=== PATIENT | female | born 1985 | race American Indian/Alaskan Native ===

== ENCOUNTER 2016-07-18 19:25 | Emergency (ER) | payer OTHER ==
[2016-07-18 19:39] VITALS: BMI 23.6
[2016-07-18 19:43] VITALS: BP 148/85; PULSE 79; TEMP 98.8
[2016-07-18] MEDS ORDERED: Promethazine DM 6.25 mg-15 mg/5 ml Syrup PO STA (20:16)
--- NOTE | 2016-07-18 20:17 | ED PDOC ---
Arrival/HPI - General Chief Complaint: ENT Problem Time Seen by Provider: 07/18/16 20:16 Historian: Patient - History of Present Illness Narrative History of Present Illness (Text): 07/18/16 20:21 This 31 female presents to this ED c/o sore throat, cough, congestion x 2 days. Patient admits a mild productive cough. Denies sore throat, sob, cp, rash, sick contact, fever, nasal discharge, DE SANTIAGO, dizziness, hemoptysis, or abnormal gait. PERC negative Context: Home Past Medical History - Provider Review Nursing Documentation Reviewed: Yes - Gastrointestinal Hx Crohn's Disease: Yes - Psychiatric Hx Substance Use: No - Surgical History Other/Comment: Partial Colectomy Family/Social History - Physician Review Nursing Documentation Reviewed: Yes Family/Social History: No Known Family HX Smoking Status: Never Smoked Hx Alcohol Use: No Hx Substance Use: No Allergies/Home Meds Allergies/Adverse Reactions: Allergies iohexol Allergy (Intermediate, Verified 04/04/16 13:26) SWELLING ciprofloxacin Allergy (Verified 04/04/16 13:26) RASH ibuprofen Adverse Reaction (Verified 04/04/16 13:26) Home Medications: Home Meds Medication Instructions Recorded Confirmed Omeprazole 1 cap PO DAILY 03/03/16 04/04/16 Iron Ps Cmplx/Vit B12/FA [Iferex 1 cap PO DAILY 04/04/16 04/04/16 150 Forte 25 Mcg-1 mg-150 mg] Mesalamine [Apriso] 0.375 gm PO DAILY 04/04/16 04/04/16 Mesalamine ER Cap [Pentasa] 500 mg PO DAILY 07/18/16 07/18/16 Omeprazole 40 mg PO DAILY 07/18/16 07/18/16 Review of Systems - Review of Systems Constitutional: Normal. absent: Fatigue, Weight Change Eyes: Normal ENT: Sore Throat, Rhinorrhea Respiratory: Cough. absent: SOB, Sputum, Wheezing Cardiovascular: Normal Gastrointestinal: Normal Genitourinary Female: Normal Musculoskeletal: Normal Skin: Normal Neurological: Normal Endocrine: Normal Hemo/Lymphatic: Normal Psychiatric: Normal Physical Exam Vital Signs Temp Pulse Resp BP Pulse Ox 07/18/16 20:57 18 97 07/18/16 19:42 98.8 F 79 17 148/85 100 Temperature: Afebrile Blood Pressure: Normal Pulse: Regular Respiratory Rate: Normal Appearance: Positive for: Well-Appearing, Non-Toxic, Comfortable Pain Distress: None Mental Status: Positive for: Alert and Oriented X 3 - Systems Exam Head: Present: Atraumatic, Normocephalic Pupils: Present: PERRL Extroacular Muscles: Present: EOMI Conjunctiva: Present: Normal Ears: Present: Normal, NORMAL TM, Normal Canal. No: Erythema Mouth: Present: Moist Mucous Membranes. No: Drooling Pharnyx: Present: Normal. No: ERYTHEMA, EXUDATE, TONSILS ENLARGED Nose (External): Present: Atraumatic Nose (Internal): Present: Rhinorrhea Neck: Present: Normal Range of Motion. No: Meningeal Signs Respiratory/Chest: Present: Clear to Auscultation, Good Air Exchange. No: Respiratory Distress, Accessory Muscle Use, Decreased Breath Sounds, Rales, Retracting, Rhonchi, Tachypneic Cardiovascular: Present: Regular Rate and Rhythm, Normal S1, S2. No: Murmurs Abdomen: Present: Normal Bowel Sounds. No: Tenderness, Distention, Peritoneal Signs Back: Present: Normal Inspection Upper Extremity: Present: Normal Inspection. No: Cyanosis, Edema Lower Extremity: Present: Normal Inspection. No: Edema Neurological: Present: GCS=15, CN II-XII Intact, Speech Normal Skin: Present: Warm, Dry, Normal Color. No: Rashes Psychiatric: Present: Alert, Oriented x 3, Normal Insight, Normal Concentration Medical Decision Making ED Course and Treatment: Re-evaluation. Patient feels better. Discussed results and plan with patient who expresses understanding. All questions answered and there is agreement with the plan to discharge home with instructions. Patient stable for discharge. Return if symptoms persist or worsen. Re-evaluation Time: 20:45 Reassessment Condition: Re-examined, Improved - Medication Orders Current Medication Orders: Discontinued Medications Promethazine HCl/Dextromethorphan (Phenergan Dm Syrup) 5 ml PO STAT STA Stop: 07/18/16 20:17 Last Admin: 07/18/16 20:32 Dose: 5 ml Disposition/Present on Arrival - Present on Arrival Any Indicators Present on Arrival: No History of DVT/PE: No History of Uncontrolled Diabetes: No Urinary Catheter: No History of Decub. Ulcer: No History Surgical Site Infection Following: None - Disposition Have Diagnosis and Disposition been Completed?: Yes Diagnosis: Upper respiratory infection Disposition: HOME/ ROUTINE Disposition Time: 20:45 Patient Plan: Discharge Condition: IMPROVED Discharge Instructions (ExitCare): Upper Respiratory Infection (ED) Additional Instructions: Call private doctor for follow up visit in 1-2 days. Take medication as instructed. Return to emergency if symptoms worsen Prescriptions: Azithromycin [Z-Isidro] 250 mg PO DAILY #6 tab Promethazine/Codeine [Codeine/Promethazine 10 MG/5 Ml-6.25 MG/5 Ml] 5 ml PO Q4H PRN #120 ml PRN Reason: Cough Referrals: Rony Torres MD [Family Provider] - Follow up with primary Forms: WORK NOTE
[2016-07-18 20:58] VITALS: RESP 18; O2SAT 97
== END 2016-07-18 20:57 | disposition home or self-care (01) ==
LOC: ED 19:25 → MERGE 19:25 → ED 20:57
DX: J06.9 Acute upper respiratory infection, unspecified (principal)

== ENCOUNTER 2016-08-10 16:42 | Emergency (ER) | payer OTHER ==
[2016-08-10 16:42] VITALS: BMI 23.6
--- NOTE | 2016-08-10 17:41 | ED PDOC ---
Arrival/HPI - General Chief Complaint: Eye Problem Time Seen by Provider: 08/10/16 17:15 Historian: Patient - History of Present Illness Narrative History of Present Illness (Text): 08/10/16 17:20 31 y/o female, pmh including gastric ulcer/colitis, allergic to fluoroquinolones and dye, c/o lt. eye itching and redness x 2 days. Pt. stated she has left eye itching with redness/crustiness discharge for the past 2 days. Pt. has no pain, no dizziness, no change in vision, no palpitation, no night sweat, no numbness or tingling, no palpitation, no other medical or psychological complaints. Past Medical History - Provider Review Nursing Documentation Reviewed: Yes - Infectious Disease Hx of Infectious Diseases: None - Cardiac Hx Cardiac Disorders: No - Pulmonary Hx Asthma: Yes (EXERCISE INDUCED) - Neurological Hx Neurological Disorder: No - HEENT Hx HEENT Disorder: No - Renal Hx Renal Disorder: No - Endocrine/Metabolic Hx Endocrine Disorders: No - Hematological/Oncological Hx Blood Disorders: No - Integumentary Hx Dermatological Disorder: No - Musculoskeletal/Rheumatological Hx Musculoskeletal Disorders: No - Gastrointestinal Hx Crohn's Disease: Yes (colectomy 2006) - Genitourinary/Gynecological Hx Genitourinary Disorders: No - Psychiatric Hx Psychophysiologic Disorder: No Hx Substance Use: No - Surgical History Other/Comment: Colectomy 2006 - Anesthesia Hx Anesthesia: Yes - Suicidal Assessment Feels Threatened In Home Enviroment: No Family/Social History - Physician Review Nursing Documentation Reviewed: Yes Family/Social History: No Known Family HX Smoking Status: Never Smoked Hx Alcohol Use: Yes Hx Substance Use: No Allergies/Home Meds Allergies/Adverse Reactions: Allergies iohexol Allergy (Intermediate, Verified 08/10/16 17:03) SWELLING ciprofloxacin Allergy (Verified 08/10/16 17:03) RASH Home Medications: Home Meds Medication Instructions Recorded Confirmed Mesalamine ER Cap [Pentasa] 500 mg PO DAILY 07/18/16 08/10/16 Norgestimate-Ethinyl Estradiol 1 tab PO DAILY 08/10/16 08/10/16 [Sprintec 28 Day Tablet] Review of Systems - Review of Systems Constitutional: absent: Fatigue, Fevers Eyes: Other (watery and itching left eye). absent: Vision Changes ENT: absent: Hearing Changes Respiratory: absent: SOB, Cough Cardiovascular: absent: Chest Pain Gastrointestinal: absent: Abdominal Pain, Nausea, Vomiting Musculoskeletal: absent: Arthralgias Physical Exam Vital Signs Reviewed: Yes Vital Signs Temp Pulse Resp BP Pulse Ox 08/10/16 17:58 98.4 F 79 18 99 08/10/16 17:45 99.0 F 89 17 96/68 L 99 08/10/16 17:06 99.0 F 83 16 96/66 L 98 Temperature: Afebrile Pulse: Regular Respiratory Rate: Normal Appearance: Positive for: Well-Appearing, Non-Toxic, Comfortable Pain Distress: None Mental Status: Positive for: Alert and Oriented X 3 - Systems Exam Head: Present: Atraumatic, Normocephalic Pupils: Present: PERRL, Other (There is no left eye corneal abrasion/laceration/ ulcers, no periorbital swelling or cellulitis. +lt. eye conjunctivitis. ) Extroacular Muscles: Present: EOMI Conjunctiva: Present: Normal Mouth: Present: Moist Mucous Membranes Neck: Present: Normal Range of Motion Respiratory/Chest: Present: Clear to Auscultation, Good Air Exchange. No: Respiratory Distress, Accessory Muscle Use Cardiovascular: Present: Regular Rate and Rhythm, Normal S1, S2. No: Murmurs Abdomen: Present: Normal Bowel Sounds. No: Tenderness, Distention, Peritoneal Signs Back: Present: Normal Inspection Upper Extremity: Present: Normal Inspection. No: Cyanosis, Edema Lower Extremity: Present: Normal Inspection. No: Edema Neurological: Present: GCS=15, CN II-XII Intact, Speech Normal Skin: Present: Warm, Dry, Normal Color. No: Rashes Psychiatric: Present: Alert, Oriented x 3, Normal Insight, Normal Concentration Medical Decision Making ED Course and Treatment: 08/10/16 17:45 -Discharge home with tobramycin, zyrtec, cold compress, avoid rubbing or touching the eye, follow up with your own pmd and opthalmologist within 24-48 hours, return to the ER for any new or worsening signs or symptoms. - Medication Orders Current Medication Orders: Discontinued Medications Tobramycin Sulfate (Tobrex 0.3% Ophth Soln) 2 drop OS STAT STA Stop: 08/10/16 17:43 Last Admin: 08/10/16 17:57 Dose: 2 drop - PA / [employer] / Resident Statement MD/DO has reviewed & agrees with the documentation as recorded. Disposition/Present on Arrival - Present on Arrival Any Indicators Present on Arrival: No History of DVT/PE: No History of Uncontrolled Diabetes: No Urinary Catheter: No History of Decub. Ulcer: No History Surgical Site Infection Following: None - Disposition Have Diagnosis and Disposition been Completed?: Yes Diagnosis: Conjunctivitis, Itch of eye Disposition: HOME/ ROUTINE Disposition Time: 17:46 Patient Plan: Discharge Condition: GOOD Additional Instructions: Discharge home with tobramycin, zyrtec, cold compress, avoid rubbing or touching the eye, follow up with your own pmd and opthalmologist within 24-48 hours, return to the ER for any new or worsening signs or symptoms. Prescriptions: Cetirizine HCl [Zyrtec] 10 mg PO DAILY #10 capsule Tobramycin 0.3% [Tobrex 0.3% Ophth Soln] 2 drop OS Q4 #1 bottle Referrals: Rony Torres MD [Primary Care Provider] - Follow up with primary Stuart Rojas MD [Staff Provider] - Follow up with primary Forms: WORK NOTE
[2016-08-10] MEDS ORDERED: Tobramycin 0.3% OPHT SOLN OS STA (17:42)
[2016-08-10 17:46] VITALS: BP 96/68; O2SAT 99
[2016-08-10 17:59] VITALS: PULSE 79; RESP 18; TEMP 98.4
== END 2016-08-10 17:59 | disposition home or self-care (01) ==
LOC: ED 16:42
DX: H10.9 Unspecified conjunctivitis (principal); L29.9 Pruritus, unspecified

== ENCOUNTER 2016-09-28 15:57 | Emergency (ER) | payer OTHER ==
[2016-09-28 15:58] VITALS: BMI 23.6
[2016-09-28 16:24] VITALS: RESP 18; TEMP 99; O2SAT 98
[2016-09-28] MEDS ORDERED: Sodium Chloride 0.9% 1,000 ML IV STA (16:47)
[2016-09-28] MEDS ORDERED: DiphenhydrAMINE 50 mg/ml Inj IVP STA (16:47)
--- NOTE | 2016-09-28 16:50 | ED PDOC ---
Arrival/HPI - General Chief Complaint: Headache Time Seen by Provider: 09/28/16 16:00 Historian: Patient - History of Present Illness Narrative History of Present Illness (Text): 09/28/16 16:48 This 31 yo female with pmh sinusitis, presents to this ED c/o DE SANTIAGO x 2 days. Patient also stated she feels sinuses pressure, and nasal congestion. Pain started as left sided throbbing DE SANTIAGO x 2 days ago. Patient has been taking OTC medication without relief of DE SANTIAGO. Denies loc, diplopia, fever, sob, cp, abdominal pain, photophobia, n/v, urinary symptoms, dizziness, or abnormal gait Time/Duration: Other (2 days) Quality: Throbbing Context: Home Past Medical History - Provider Review Nursing Documentation Reviewed: Yes - Infectious Disease Hx of Infectious Diseases: None - Reproductive Menopause: No - Cardiac Hx Cardiac Disorders: No - Pulmonary Hx Asthma: Yes (EXERCISE INDUCED) - Neurological Hx Neurological Disorder: No - HEENT Hx HEENT Disorder: No - Renal Hx Renal Disorder: No - Endocrine/Metabolic Hx Endocrine Disorders: No - Hematological/Oncological Hx Blood Disorders: No - Integumentary Hx Dermatological Disorder: No - Musculoskeletal/Rheumatological Hx Musculoskeletal Disorders: No - Gastrointestinal Hx Crohn's Disease: Yes (colectomy 2006) - Genitourinary/Gynecological Hx Genitourinary Disorders: No - Psychiatric Hx Psychophysiologic Disorder: No Hx Substance Use: No - Surgical History Other/Comment: Colectomy 2007 - Anesthesia Hx Anesthesia: Yes - Suicidal Assessment Feels Threatened In Home Enviroment: No Family/Social History - Physician Review Nursing Documentation Reviewed: Yes Family/Social History: No Known Family HX Smoking Status: Never Smoked Hx Alcohol Use: Yes Hx Substance Use: No Allergies/Home Meds Allergies/Adverse Reactions: Allergies iohexol Allergy (Intermediate, Verified 09/28/16 16:16) SWELLING ciprofloxacin Allergy (Verified 09/28/16 16:16) RASH Home Medications: Home Meds Medication Instructions Recorded Confirmed Mesalamine [Delzicol] 0 mg PO BID 09/28/16 09/28/16 Review of Systems - Review of Systems Constitutional: Normal. absent: Fatigue, Weight Change, Fevers, Night Sweats Eyes: Normal ENT: Rhinorrhea, Sinus Congestion Respiratory: Normal. absent: SOB, Cough, Sputum, Wheezing Cardiovascular: Normal. absent: Chest Pain, Palpitations Gastrointestinal: Normal Genitourinary Female: Normal. absent: Dysuria, Frequency, Hematuria, Vaginal Bleeding, Vaginal Discharge Musculoskeletal: Normal. absent: Back Pain, Neck Pain, Myalgias Skin: Normal. absent: Rash, Pruritis Neurological: Headache. absent: Dizziness, Focal Weakness, Gait Changes, Speech Changes, Facial Droop, Disequilibrium, Seizure Endocrine: Normal Hemo/Lymphatic: Normal Psychiatric: Normal Physical Exam Vital Signs Temp Pulse Resp BP Pulse Ox 09/28/16 16:20 99.0 F 86 18 106/69 98 09/28/16 16:13 99 F 86 16 106/69 100 Temperature: Afebrile Blood Pressure: Normal Pulse: Regular Respiratory Rate: Normal Appearance: Positive for: Well-Appearing, Non-Toxic, Comfortable Pain Distress: None Mental Status: Positive for: Alert and Oriented X 3 - Systems Exam Head: Present: Atraumatic, Normocephalic, Tenderness (mild frontal, and mxillary sinuses tenderness. No facial erythema, swelling or skin lesion) Pupils: Present: PERRL Extroacular Muscles: Present: EOMI Conjunctiva: Present: Normal Ears: Present: Normal, NORMAL TM, Normal Canal. No: Erythema Mouth: Present: Moist Mucous Membranes, Normal Lips, Normal Tounge, Normal Teeth. No: Drooling Pharnyx: Present: Normal. No: ERYTHEMA, EXUDATE, TONSILS ENLARGED Nose (External): Present: Atraumatic Nose (Internal): Present: Rhinorrhea Neck: Present: Normal Range of Motion Respiratory/Chest: Present: Clear to Auscultation, Good Air Exchange. No: Respiratory Distress, Accessory Muscle Use Cardiovascular: Present: Regular Rate and Rhythm, Normal S1, S2. No: Murmurs Abdomen: Present: Normal Bowel Sounds. No: Tenderness, Distention, Peritoneal Signs Back: Present: Normal Inspection. No: CVA Tenderness Upper Extremity: Present: Normal Inspection, Normal ROM. No: Cyanosis, Edema Lower Extremity: Present: Normal Inspection, Normal ROM. No: Edema Neurological: Present: GCS=15, CN II-XII Intact, Speech Normal, Motor Func Grossly Intact, Normal Sensory Function, Normal Cerebellar Funct, Gait Normal, Memory Normal, Other (No neuro focal deficits) Skin: Present: Warm, Dry, Normal Color. No: Rashes Psychiatric: Present: Alert, Oriented x 3, Normal Insight, Normal Concentration Medical Decision Making ED Course and Treatment: 09/28/16 18:08 Pain has improved. Patient feels better and she wishes to be discharge home. vital signs are stable. Re-evaluation Time: 18:08 Reassessment Condition: Re-examined, Improved - Lab Interpretations Lab Results: Lab Results 09/28/16 16:23: Urine Color Yellow, Urine Appearance Slight-cloudy, Urine pH 6.0 , Ur Specific [place] 1.025, Urine Protein Trace H, Urine Glucose (UA) Negative , Urine Ketones Trace H, Urine Blood Trace-intact H, Urine Nitrate Negative, Urine Bilirubin Negative, Urine Urobilinogen 0.2, Ur Leukocyte Esterase Negative , Urine RBC 5 - 10, Urine WBC 1 - 3, Ur Epithelial Cells 4 - 5, Amorphous Sediment Small, Urine Bacteria Trace - Medication Orders Current Medication Orders: Discontinued Medications Diphenhydramine HCl (Benadryl) 50 mg IVP STAT STA Stop: 09/28/16 16:48 Last Admin: 09/28/16 17:02 Dose: 50 mg Sodium Chloride (Sodium Chloride 0.9%) 1,000 mls @ 999 mls/hr IV .Q1H1M STA Stop: 09/28/16 17:47 Last Admin: 09/28/16 16:59 Dose: 999 mls/hr Ketorolac Tromethamine (Toradol) 15 mg IVP STAT STA Stop: 09/28/16 16:49 Last Admin: 09/28/16 17:01 Dose: 15 mg Metoclopramide HCl (Reglan) 10 mg IVP STAT STA Stop: 09/28/16 16:48 Last Admin: 09/28/16 17:02 Dose: 10 mg Disposition/Present on Arrival - Present on Arrival Any Indicators Present on Arrival: No History of DVT/PE: No History of Uncontrolled Diabetes: No Urinary Catheter: No History of Decub. Ulcer: No History Surgical Site Infection Following: None - Disposition Have Diagnosis and Disposition been Completed?: Yes Diagnosis: Headache, Sinusitis Disposition: HOME/ ROUTINE Disposition Time: 18:11 Patient Plan: Discharge Condition: GOOD Discharge Instructions (ExitCare): Sinusitis (ED), General Headache (ED) Additional Instructions: Call private doctor for follow up visit in 1-2 days. Take medication as instructed. Return to emergency if symptoms worsen. Prescriptions: Amoxicillin [Amoxil 500 mg Cap] 500 mg PO TID #30 cap Famotidine [Pepcid] 40 mg PO DAILY #10 tablet Ibuprofen [Motrin] 600 mg PO Q8 PRN #20 tab PRN Reason: Pain, Severe (8-10) Referrals: Rony Torres MD [Primary Care Provider] - Follow up with primary Forms: [employer] (German)
[2016-09-28 16:52] LABS: URINE BILIRUBIN NEGATIVE (NEGATIVE); URINE BLOOD TRACE-INTACT (NEGATIVE); URINE GLUCOSE (UA) NEGATIVE (NEGATIVE); URINE LEUKOCYTE ESTERASE NEGATIVE Leu/uL (NEGATIVE); URINE NITRATE NEGATIVE (NEGATIVE); URINE PROTEIN TRACE mg/dL (<30 mg/dL); URINE UROBILINOGEN 0.2 E.U./dL (<1 E.U./dL)
[2016-09-28 16:56] LABS: URINE APPEARANCE SLIGHT-CLOUDY (CLEAR); URINE COLOR YELLOW (YELLOW)
[2016-09-28 16:57] LABS: URINE AMORPHOUS SEDIMENT SMALL; URINE BACTERIA TRACE (NEG)
[2016-09-28 18:06] VITALS: BP 108/71; PULSE 79
== END 2016-09-28 18:19 | disposition home or self-care (01) ==
LOC: ED 15:57
DX: R51 Headache (principal); J32.9 Chronic sinusitis, unspecified
CPT/HCPCS: 81001; 96374; 96375; 99285; J1200; J1885; J2765; J7040

== ENCOUNTER 2016-10-13 14:46 | Emergency (ER) | payer OTHER ==
[2016-10-13 15:12] VITALS: BMI 22.6
[2016-10-13 15:16] VITALS: TEMP 98.5; O2SAT 100
[2016-10-13] MEDS ORDERED: Sodium Chloride 0.9% 1,000 ML IV STA (15:22)
--- NOTE | 2016-10-13 15:27 | ED PDOC ---
Arrival/HPI - General Chief Complaint: Abdominal Pain Time Seen by Provider: 10/13/16 15:16 - History of Present Illness Narrative History of Present Illness (Text): 10/13/16 15:23 31 yo female, hx of crohns disease presents with abdominal pain, nausea, diarrhea x1 day. pt states she believes it to be a crohns flare. pt denies fevers, vomiting urinary changes. 10/13/16 17:41 Past Medical History - Provider Review Nursing Documentation Reviewed: Yes - Infectious Disease Hx of Infectious Diseases: None - Cardiac Hx Cardiac Disorders: No - Pulmonary Hx Respiratory Disorders: Yes Hx Asthma: Yes (EXERCISE INDUCED) - Neurological Hx Neurological Disorder: No - HEENT Hx HEENT Disorder: No - Renal Hx Renal Disorder: No - Endocrine/Metabolic Hx Endocrine Disorders: No - Hematological/Oncological Hx Blood Disorders: No - Integumentary Hx Dermatological Disorder: No - Musculoskeletal/Rheumatological Hx Musculoskeletal Disorders: No - Gastrointestinal Hx Gastrointestinal Disorders: Yes Hx Crohn's Disease: Yes (colectomy 2006) - Genitourinary/Gynecological Hx Genitourinary Disorders: No - Psychiatric Hx Psychophysiologic Disorder: No Hx Substance Use: No - Surgical History Other/Comment: Colectomy 2007 - Anesthesia Hx Anesthesia: Yes Hx Anesthesia Reactions: No - Suicidal Assessment Feels Threatened In Home Enviroment: No Family/Social History Family/Social History: Unknown Family HX Smoking Status: Never Smoked Hx Alcohol Use: Yes Frequency of alcohol use: Socially Hx Substance Use: No Allergies/Home Meds Allergies/Adverse Reactions: Allergies iohexol Allergy (Intermediate, Verified 10/13/16 15:12) SWELLING ciprofloxacin Allergy (Verified 10/13/16 15:12) RASH Home Medications: Home Meds Medication Instructions Recorded Confirmed Mesalamine [Delzicol] 0 mg PO BID 09/28/16 10/13/16 Famotidine [Pepcid] 0 mg PO DAILY 10/13/16 10/13/16 Omeprazole [Omeprazole] 0 mg PO DAILY 10/13/16 10/13/16 Review of Systems - Review of Systems Constitutional: Normal Eyes: Normal ENT: Normal Respiratory: Normal Cardiovascular: Normal Gastrointestinal: Normal, Abdominal Pain, Diarrhea, Nausea Genitourinary Female: Normal Musculoskeletal: Normal Skin: Normal Neurological: Normal Endocrine: Normal Hemo/Lymphatic: Normal Psychiatric: Normal Physical Exam Vital Signs Temp Pulse Resp BP Pulse Ox 10/13/16 17:54 76 18 112/80 10/13/16 15:15 98.5 F 80 19 97/69 L 100 Temperature: Afebrile Blood Pressure: Normal Pulse: Regular Respiratory Rate: Normal Appearance: Positive for: Well-Appearing, Non-Toxic, Comfortable Pain Distress: None Mental Status: Positive for: Alert and Oriented X 3 - Systems Exam Head: Present: Atraumatic, Normocephalic Pupils: Present: PERRL Extroacular Muscles: Present: EOMI Conjunctiva: Present: Normal Mouth: Present: Moist Mucous Membranes Neck: Present: Normal Range of Motion Respiratory/Chest: Present: Clear to Auscultation, Good Air Exchange. No: Respiratory Distress, Accessory Muscle Use Cardiovascular: Present: Regular Rate and Rhythm, Normal S1, S2. No: Murmurs Abdomen: Present: Tenderness (minimal non focal), Normal Bowel Sounds. No: Distention, Peritoneal Signs, Rebound, Guarding Back: Present: Normal Inspection Upper Extremity: Present: Normal Inspection. No: Cyanosis, Edema Lower Extremity: Present: Normal Inspection. No: Edema Neurological: Present: GCS=15, CN II-XII Intact, Speech Normal Skin: Present: Warm, Dry, Normal Color. No: Rashes Psychiatric: Present: Alert, Oriented x 3, Normal Insight, Normal Concentration Medical Decision Making ED Course and Treatment: 10/13/16 17:36 r/o chrogns flare- labs pending 530: upon reassesment: pt on phone in nad. abd soft no ttp. pt states she wishes to go home. does not want any imaging, or possible admission. - Lab Interpretations Lab Results: 10/13/16 16:08 10/13/16 17:05 Lab Results 10/13/16 17:05: Sodium 140, Potassium 3.2 L, Chloride 107, Carbon Dioxide 20 L, Anion Gap 16, BUN 8, Creatinine 0.6, Est GFR ( Amer) > 60, Est GFR (Non- Af Amer) > 60, Random Glucose 99, Calcium 9.0, Total Bilirubin 0.5, AST 38, ALT 44, Alkaline Phosphatase 46, Total Protein 7.5, Albumin 3.9, Globulin 3.5, Albumin/Globulin Ratio 1.1, Lipase 75 10/13/16 16:08: PT 10.6, INR 0.98, APTT 28.2 08/17/17 16:08: WBC 8.8, RBC 3.72, Hgb 9.9 L, Hct 30.9 L, MCV 83.1, MCH 26.6, MCHC 32.0, RDW 16.4 H, Plt Count 468 H, MPV 8.6, Gran % 61.1, Lymph % (Auto) 28.2, Nelson % (Auto) 8.4 H, Eos % (Auto) 2.2, Baso % (Auto) 0.1, Gran # 5.36, Lymph # 2.5, Nelson # 0.7 H, Eos # 0.2, Baso # 0.01 10/13/16 16:05: Urine Color Yellow, Urine Appearance Clear, Urine pH 6.0, Ur Specific [place] 1.020, Urine Protein Negative, Urine Glucose (UA) Negative, Urine Ketones Trace H, Urine Blood Negative, Urine Nitrate Negative, Urine Bilirubin Negative, Urine Urobilinogen 0.2, Ur Leukocyte Esterase Negative, Urine HCG, Qual Negative - Medication Orders Current Medication Orders: Discontinued Medications Sodium Chloride (Sodium Chloride 0.9%) 1,000 mls @ 1,000 mls/hr IV .Q1H STA Stop: 10/13/16 16:21 Last Admin: 10/13/16 16:09 Dose: 1,000 mls/hr Ondansetron HCl (Zofran Inj) 4 mg IVP STAT STA Stop: 10/13/16 15:23 Last Admin: 10/13/16 16:10 Dose: 4 mg Pantoprazole Sodium (Protonix Inj) 40 mg IVP STAT STA Stop: 10/13/16 15:23 Last Admin: 10/13/16 16:10 Dose: 40 mg Potassium Chloride (K-Dur 20 Meq Er Tab) 40 meq PO STAT STA Stop: 10/13/16 17:34 Last Admin: 10/13/16 17:43 Dose: 40 meq Disposition/Present on Arrival - Present on Arrival Any Indicators Present on Arrival: No History of DVT/PE: No History of Uncontrolled Diabetes: No Urinary Catheter: No History of Decub. Ulcer: No History Surgical Site Infection Following: None - Disposition Have Diagnosis and Disposition been Completed?: Yes Diagnosis: Abdominal pain Disposition: HOME/ ROUTINE Disposition Time: 17:42 Condition: STABLE Discharge Instructions (ExitCare): Acute Abdominal Pain (DC) Additional Instructions: please follow up with your doctor/specialist. return to er with worsening symptoms or concerns. Referrals: [employer] [Outside] - Follow up with primary [facility] [place] [Outside] - Follow up with primary Devon Jo MD [Staff Provider] - Follow up with primary Rony Torres MD [Primary Care Provider] - Follow up with primary Forms: [employer] (Macedonian), WORK NOTE
[2016-10-13 16:21] LABS: BASO # 0.01 K/mm3 (0.0-2.0); BASO % 0.1 % (0.0-3.0); EOS # 0.2 (0.0-0.7); EOS % 2.2 % (1.5-5.0); GRAN # 5.36 (1.4-6.5); GRAN % 61.1 % (50.0-68.0); HEMOGLOBIN 9.9 g/dL (12.0-16.0); LYMPH # 2.5 (1.2-3.4); LYMPH % 28.2 % (22.0-35.0); MEAN CELL VOLUME 83.1 fl (80.0-105.0); MEAN CORPUSCULAR HEMOGLOBIN 26.6 pg (25.0-35.0); MEAN PLATELET VOLUME 8.6 fl (7.0-11.0); MONO # 0.7 (0.1-0.6); MONO % 8.4 % (1.0-6.0); PLATELET COUNT 468 10^3/uL (120.0-450.0); RBC 3.72 10^6/uL (3.5-6.1); RED CELL DISTRIBUTION WIDTH 16.4 % (11.5-14.5); WHITE BLOOD COUNT 8.8 10^3/ul (4.5-11.0)
[2016-10-13 16:21] LABS: URINE BILIRUBIN NEGATIVE (NEGATIVE); URINE BLOOD NEGATIVE (NEGATIVE); URINE GLUCOSE (UA) NEGATIVE (NEGATIVE); URINE LEUKOCYTE ESTERASE NEGATIVE Leu/uL (NEGATIVE); URINE NITRATE NEGATIVE (NEGATIVE); URINE PROTEIN NEGATIVE mg/dL (<30 mg/dL); URINE UROBILINOGEN 0.2 E.U./dL (<1 E.U./dL)
[2016-10-13 16:28] LABS: INR 0.98 (0.93-1.08); PARTIAL THROMBOPLASTIN TIME 28.2 Seconds (23.7-30.8); PROTHROMBIN TIME 10.6 Seconds (9.9-11.8)
[2016-10-13 16:30] LABS: URINE APPEARANCE CLEAR (CLEAR); URINE COLOR YELLOW (YELLOW)
[2016-10-13 16:35] LABS: HCG,QUALITATIVE URINE NEGATIVE (NEGATIVE)
[2016-10-13 17:26] LABS: ALB/GLOB RATIO 1.1 (1.1-1.8); ALBUMIN 3.9 g/dL (3.0-4.8); ALT/SGPT 44 U/L (7-56); AST/SGOT 38 U/L (15-39); BLOOD UREA NITROGEN 8 mg/dL (7-21); GFR AFRICAN-AMERICAN > 60; GFR NON-AFRICAN AMERICAN > 60; LIPASE 75 U/L (23-300)
[2016-10-13] MEDS ORDERED: Potassium Chloride 20 mEq ER Tab PO STA (17:33)
[2016-10-13 17:54] VITALS: BP 112/80; PULSE 76; RESP 18
== END 2016-10-13 17:54 | disposition home or self-care (01) ==
LOC: ED 14:46
DX: R10.9 Unspecified abdominal pain (principal)
CPT/HCPCS: 80053; 81003; 83690; 84703; 85025; 85610; 85730; 96374; 96375; 99283; C9113; J2405; J7040

== ENCOUNTER 2016-11-06 13:48 | Emergency (ER) | payer OTHER ==
[2016-11-06 13:48] VITALS: BMI 22.6
[2016-11-06 14:18] VITALS: RESP 18; TEMP 98.8
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
--- NOTE | 2016-11-06 15:24 | CT ---
PROCEDURE: CT HEAD WITHOUT CONTRAST. HISTORY: Posttraumatic headache. COMPARISON: None available. TECHNIQUE: Axial computed tomography images were obtained through the head/brain without intravenous contrast. Radiation dose: Total exam DLP = 677.45 mGy-cm. This CT exam was performed using one or more of the following dose reduction techniques: Automated exposure control, adjustment of the mA and/or kV according to patient size, and/or use of iterative reconstruction technique. FINDINGS: HEMORRHAGE: No intracranial hemorrhage. BRAIN: No mass effect or edema. No atrophy or chronic microvascular ischemic changes. VENTRICLES: Unremarkable. No hydrocephalus. CALVARIUM: Unremarkable. PARANASAL SINUSES: Unremarkable as visualized. No significant inflammatory changes. MASTOID AIR CELLS: Unremarkable as visualized. No inflammatory changes. OTHER FINDINGS: None. IMPRESSION: No acute intracranial abnormalities. No significant findings to account for the clinical presentation.
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
[2016-11-06 16:36] VITALS: BP 106/73; PULSE 68; O2SAT 99
== END 2016-11-06 17:34 | disposition home or self-care (01) ==
LOC: ED 13:48
DX: S09.90XA Unspecified injury of head, initial encounter (principal); Y08.89XA Assault by other specified means, initial encounter; Y93.89 Activity, other specified; Y92.89 Other specified places as the place of occurrence of the external cause; M54.2 Cervicalgia

== ENCOUNTER 2016-11-28 00:26 | Emergency (ER) | payer OTHER ==
[2016-11-28 00:27] VITALS: BMI 22.6
[2016-11-28 00:38] VITALS: TEMP 98.2
[2016-11-28] MEDS ORDERED: Sodium Chloride 0.9% 1,000 ML IV STA (00:47)
--- NOTE | 2016-11-28 01:04 | ED PDOC ---
Arrival/HPI - General Chief Complaint: Abdominal Pain Time Seen by Provider: 11/28/16 00:31 Historian: Patient - History of Present Illness Narrative History of Present Illness (Text): 11/28/16 00:35 Cherry Hernandez is a 31 year old female who presents to the emergency department complaining of nausea, vomiting, and diarrhea for a few hours. Patient states that she also experiences associated abdominal cramping. Patient denies any fever, chills, chest pain, shortness of breath, urinary symptoms, back pain, neck pain, headache, dizziness, or any other complaints. Time/Duration: 4-6 hours Symptom Onset: Gradual Symptom Course: Unchanged Severity Level: Mild Activities at Onset: Light Context: Home Past Medical History - Provider Review Nursing Documentation Reviewed: Yes - Infectious Disease Hx of Infectious Diseases: None - Cardiac Hx Cardiac Disorders: No - Pulmonary Hx Respiratory Disorders: Yes Hx Asthma: Yes (EXERCISE INDUCED) - Neurological Hx Neurological Disorder: No - HEENT Hx HEENT Disorder: No - Renal Hx Renal Disorder: No - Endocrine/Metabolic Hx Endocrine Disorders: No - Hematological/Oncological Hx Blood Disorders: No - Integumentary Hx Dermatological Disorder: No - Musculoskeletal/Rheumatological Hx Musculoskeletal Disorders: No - Gastrointestinal Hx Gastrointestinal Disorders: Yes Hx Crohn's Disease: Yes (colectomy 2006) - Genitourinary/Gynecological Hx Genitourinary Disorders: No - Psychiatric Hx Psychophysiologic Disorder: No Hx Substance Use: No - Surgical History Other/Comment: Colectomy 2007 - Anesthesia Hx Anesthesia: Yes Hx Anesthesia Reactions: No - Suicidal Assessment Feels Threatened In Home Enviroment: No Family/Social History - Physician Review Nursing Documentation Reviewed: Yes Family/Social History: No Known Family HX Smoking Status: Never Smoked Hx Alcohol Use: Yes Hx Substance Use: No Allergies/Home Meds Allergies/Adverse Reactions: Allergies iohexol Allergy (Intermediate, Verified 11/28/16 00:38) SWELLING ciprofloxacin Allergy (Verified 11/28/16 00:38) RASH Home Medications: Home Meds Medication Instructions Recorded Confirmed Mesalamine [Delzicol] 800 mg PO QID 09/28/16 11/28/16 Omeprazole [Omeprazole] 40 mg PO DAILY 10/13/16 11/28/16 Folic Acid/Mv,Iron,Min [One Daily 1 each PO DAILY 10/02/17 10/02/17 For Women Tablet] Review of Systems - Physician Review All systems were reviewed & negative as marked: Yes - Review of Systems Constitutional: absent: Fevers, Night Sweats Eyes: absent: Vision Changes ENT: absent: Hearing Changes Respiratory: absent: SOB, Cough Cardiovascular: absent: Chest Pain Gastrointestinal: Abdominal Pain (cramping), Diarrhea, Nausea, Vomiting Genitourinary Female: absent: Dysuria, Frequency Musculoskeletal: absent: Arthralgias, Back Pain Skin: absent: Rash, Pruritis Neurological: absent: Headache, Dizziness Endocrine: absent: Diaphoresis, Polyuria Hemo/Lymphatic: absent: Adenopathy Psychiatric: absent: Anxiety, Depression Physical Exam Vital Signs Reviewed: Yes Vital Signs Temp Pulse Resp BP Pulse Ox 11/28/16 05:00 61 16 97/69 L 98 11/28/16 03:30 77 14 108/69 100 11/28/16 00:46 74 16 100 11/28/16 00:34 98.2 F 78 18 110/69 100 Temperature: Afebrile Blood Pressure: Normal Pulse: Regular Respiratory Rate: Normal Appearance: Positive for: Well-Appearing, Non-Toxic, Comfortable Pain Distress: None Mental Status: Positive for: Alert and Oriented X 3 - Systems Exam Head: Present: Atraumatic, Normocephalic Pupils: Present: PERRL Extroacular Muscles: Present: EOMI Conjunctiva: Present: Normal Mouth: Present: Moist Mucous Membranes Neck: Present: Normal Range of Motion Respiratory/Chest: Present: Clear to Auscultation, Good Air Exchange. No: Respiratory Distress, Accessory Muscle Use Cardiovascular: Present: Regular Rate and Rhythm, Normal S1, S2. No: Murmurs Abdomen: Present: Normal Bowel Sounds. No: Tenderness, Distention, Peritoneal Signs Back: Present: Normal Inspection Upper Extremity: Present: Normal Inspection. No: Cyanosis, Edema Lower Extremity: Present: Normal Inspection. No: Edema Neurological: Present: GCS=15, CN II-XII Intact, Speech Normal Skin: Present: Warm, Dry, Normal Color. No: Rashes Psychiatric: Present: Alert, Oriented x 3, Normal Insight, Normal Concentration Medical Decision Making ED Course and Treatment: 11/28/16 00:35 Impression: 31 year old female complaining of nausea, vomiting, and diarrhea for a few hours. Differential Diagnosis included but are not limited to: Plan: -- Urinalysis -- Labs -- Zofran and IV Fluids -- Reassess and disposition Prior Visits: Notes and results from previous visits were reviewed. Patient last seen in the ED on 11/06/16 for headache and neck pain that day. Patient was discharged home. Progress Notes: Re-evaluation Time: 05:47 Reassessment Condition: Re-examined, Improved - Lab Interpretations Lab Results: 11/28/16 00:45 11/28/16 00:45 Lab Results 11/28/16 00:45: Sodium 139, Potassium 4.0, Chloride 104, Carbon Dioxide 26, Anion Gap 13, BUN 12, Creatinine 0.6, Est GFR ( Amer) > 60, Est GFR (Non- Af Amer) > 60, Random Glucose 91, Calcium 9.4, Total Bilirubin 0.5, AST 31, ALT 28, Alkaline Phosphatase 47, Total Protein 7.4, Albumin 3.9, Globulin 3.5, Albumin/Globulin Ratio 1.1, Lipase 84 11/28/16 00:45: Urine Color Yellow, Urine Appearance Clear, Urine pH 6.5, Ur Specific [place] 1.025, Urine Protein Negative, Urine Glucose (UA) Negative, Urine Ketones Negative, Urine Blood Small H, Urine Nitrate Negative, Urine Bilirubin Negative, Urine Urobilinogen 0.2, Ur Leukocyte Esterase Negative, Urine RBC 0 - 2, Urine WBC 0 - 2, Ur Epithelial Cells 1 - 3, Urine Bacteria Few , Urine HCG, Qual Negative 11/28/16 00:45: WBC 8.0, RBC 4.02, Hgb 11.2 L, Hct 34.1 L, MCV 84.8, MCH 27.9, MCHC 32.8, RDW 16.6 H, Plt Count 452 H, MPV 8.5, Gran % 40.6 L, Lymph % (Auto) 47.[address], [facility] % (Auto) 7.9 H, Eos % (Auto) 3.9, Baso % (Auto) 0.4, Gran # 3.26, Lymph # 3.8 H, [facility] # 0.6, Eos # 0.3, Baso # 0.03 I have reviewed the lab results: Yes - Medication Orders Current Medication Orders: Discontinued Medications Sodium Chloride (Sodium Chloride 0.9%) 1,000 mls @ 1,000 mls/hr IV .Q1H STA Stop: 11/28/16 01:46 Last Admin: 11/28/16 01:00 Dose: 1,000 mls/hr eMAR Start Stop Document 11/28/16 01:00 YP (Rec: 11/28/16 01:00 YP [id number]) Intravenous Solution Start Date 11/28/16 Start Time 00:55 End Date 11/28/16 End time 01:55 Total Infusion Time 60 Ondansetron HCl (Zofran Inj) 4 mg IVP STAT STA Stop: 11/28/16 00:48 Last Admin: 11/28/16 01:00 Dose: 4 mg IVP Administration Document 11/28/16 01:00 YP (Rec: 11/28/16 01:00 YP [id number]) Charges for Administration # of IVP Administrations 1 - Scribe Statement The provider has reviewed the documentation as recorded by the Scribe Tami Arnold Provider Scribe Attestation: All medical record entries made by the Scribe were at my direction and personally dictated by me. I have reviewed the chart and agree that the record accurately reflects my personal performance of the history, physical exam, medical decision making, and the department course for this patient. I have also personally directed, reviewed, and agree with the discharge instructions and disposition. Disposition/Present on Arrival - Present on Arrival Any Indicators Present on Arrival: No History of DVT/PE: No History of Uncontrolled Diabetes: No Urinary Catheter: No History of Decub. Ulcer: No History Surgical Site Infection Following: None - Disposition Have Diagnosis and Disposition been Completed?: Yes Diagnosis: Crohns disease Disposition: HOME/ ROUTINE Disposition Time: 05:47 Condition: GOOD Discharge Instructions (ExitCare): Acute Diarrhea (ED) Forms: [facility] [employer] (Korean), WORK NOTE
[2016-11-28 01:11] LABS: BASO # 0.03 K/mm3 (0.0-2.0); BASO % 0.4 % (0.0-3.0); EOS # 0.3 (0.0-0.7); EOS % 3.9 % (1.5-5.0); GRAN # 3.26 (1.4-6.5); GRAN % 40.6 % (50.0-68.0); HEMATOCRIT 34.1 % (36.0-48.0); LYMPH # 3.8 (1.2-3.4); LYMPH % 47.2 % (22.0-35.0); MEAN CELL VOLUME 84.8 fl (80.0-105.0); MEAN CORPUSCULAR HEMOGLOBIN 27.9 pg (25.0-35.0); MEAN CORPUSCULAR HGB CONC 32.8 g/dl (31.0-37.0); MEAN PLATELET VOLUME 8.5 fl (7.0-11.0); MONO # 0.6 (0.1-0.6); MONO % 7.9 % (1.0-6.0); RED CELL DISTRIBUTION WIDTH 16.6 % (11.5-14.5)
[2016-11-28 01:16] LABS: PH,URINE 6.5 (4.7-8.0); URINE BILIRUBIN NEGATIVE (NEGATIVE); URINE BLOOD SMALL (NEGATIVE); URINE GLUCOSE (UA) NEGATIVE (NEGATIVE); URINE KETONE NEGATIVE (NEGATIVE); URINE LEUKOCYTE ESTERASE NEGATIVE Leu/uL (NEGATIVE); URINE PROTEIN NEGATIVE mg/dL (<30 mg/dL); URINE UROBILINOGEN 0.2 E.U./dL (<1 E.U./dL)
[2016-11-28 01:19] LABS: URINE APPEARANCE CLEAR (CLEAR); URINE COLOR YELLOW (YELLOW)
[2016-11-28 01:23] LABS: ALB/GLOB RATIO 1.1 (1.1-1.8); ALKALINE PHOSPHATASE 47 U/L (38-126); ALT/SGPT 28 U/L (7-56); AST/SGOT 31 U/L (14-36); BILIRUBIN,TOTAL 0.5 mg/dL (0.2-1.3); BLOOD UREA NITROGEN 12 mg/dL (7-21); CALCIUM 9.4 mg/dL (8.4-10.5); CARBON DIOXIDE 26 mmol/L (21-33); CHLORIDE 104 mmol/L (98-107); GFR AFRICAN-AMERICAN > 60; GLUCOSE,RANDOM 91 mg/dL (70-110); LIPASE 84 U/L (23-300); SODIUM 139 mmol/L (132-148); TOTAL PROTEIN 7.4 g/dL (5.8-8.3)
[2016-11-28 02:01] LABS: URINE RBC 0 - 2 /hpf (0-2); URINE WBC 0 - 2 /hpf (0-6)
[2016-11-28 02:02] LABS: URINE BACTERIA FEW (NEG)
[2016-11-28 05:41] VITALS: BP 97/69; PULSE 61; RESP 16; O2SAT 98
== END 2016-11-28 05:55 | disposition home or self-care (01) ==
LOC: ED 00:26
DX: K50.90 Crohn's disease, unspecified, without complications (principal)
CPT/HCPCS: 80053; 81001; 83690; 84703; 85025; 96361; 96374; 99284; J2405; J7040

== ENCOUNTER 2017-01-23 16:55 | Emergency (ER) | payer OTHER ==
[2017-01-23 16:55] VITALS: BMI 22.6
[2017-01-23 17:26] VITALS: BP 107/77; PULSE 89; RESP 17; TEMP 98.5; O2SAT 100
[2017-01-23] MEDS ORDERED: Amoxicillin-Clav 875-125 mg Tab PO STA (19:16)
--- NOTE | 2017-01-23 19:23 | ED PDOC ---
Arrival/HPI - General Chief Complaint: Cough, Cold, Congestion Time Seen by Provider: 01/23/17 19:16 Historian: Patient - History of Present Illness Narrative History of Present Illness (Text): 01/23/17 19:23 31-year-old female presents with 3 day history of nasal congestion frontal sinus pain and pressure and frontal headache. Patient with dry cough. Denies ear pain. Denies nausea vomiting diarrhea or constipation. No medications have been taken for pain at home. Patient complaining of subjective fevers at home. Denies sick contacts. No other complaints Time/Duration: Other (3 days) Symptom Onset: Gradual Symptom Course: Worsening Quality: Pressure, Throbbing Severity Level: 5 Past Medical History - Provider Review Nursing Documentation Reviewed: Yes - Travel History Have you recently traveled outside [place] w/in the past 3 mons?: No - Infectious Disease Hx of Infectious Diseases: None - Tetanus Immunization Tetanus Immunization: Unknown - Cardiac Hx Cardiac Disorders: No - Pulmonary Hx Respiratory Disorders: Yes Hx Asthma: Yes (EXERCISE INDUCED) - Neurological Hx Neurological Disorder: No - HEENT Hx HEENT Disorder: No - Renal Hx Renal Disorder: No - Endocrine/Metabolic Hx Endocrine Disorders: No - Hematological/Oncological Hx Blood Disorders: No - Integumentary Hx Dermatological Disorder: No - Musculoskeletal/Rheumatological Hx Musculoskeletal Disorders: No - Gastrointestinal Hx Gastrointestinal Disorders: Yes Hx Crohn's Disease: Yes (colectomy 2006) - Genitourinary/Gynecological Hx Genitourinary Disorders: No - Psychiatric Hx Psychophysiologic Disorder: No Hx Substance Use: No - Surgical History Other/Comment: Colectomy 2007. Partial colectomy - Anesthesia Hx Anesthesia: Yes Hx Anesthesia Reactions: No - Suicidal Assessment Feels Threatened In Home Enviroment: No Family/Social History - Physician Review Nursing Documentation Reviewed: Yes Family/Social History: Unknown Family HX Smoking Status: Never Smoked Hx Alcohol Use: Yes Hx Substance Use: No Allergies/Home Meds Allergies/Adverse Reactions: Allergies iohexol Allergy (Intermediate, Verified 01/23/17 17:27) SWELLING ciprofloxacin Allergy (Verified 01/23/17 17:27) RASH Home Medications: Home Meds Medication Instructions Recorded Confirmed Mesalamine [Delzicol] 800 mg PO QID 09/28/16 01/23/17 Review of Systems - Review of Systems Constitutional: absent: Fatigue, Fevers Eyes: absent: Vision Changes, Photophobia ENT: Sore Throat, Sinus Congestion Respiratory: Cough. absent: SOB Cardiovascular: absent: Chest Pain, Palpitations Gastrointestinal: absent: Abdominal Pain, Nausea, Vomiting Genitourinary Female: absent: Dysuria Musculoskeletal: absent: Arthralgias Neurological: Headache. absent: Dizziness Psychiatric: absent: Anxiety, Depression Physical Exam Vital Signs Reviewed: Yes Vital Signs Temp Pulse Resp BP Pulse Ox 01/23/17 17:22 98.5 F 89 17 107/77 100 Temperature: Afebrile Blood Pressure: Normal Pulse: Regular Respiratory Rate: Normal Appearance: Positive for: Well-Appearing, Non-Toxic, Comfortable Pain Distress: None Mental Status: Positive for: Alert and Oriented X 3 - Systems Exam Head: Present: Atraumatic, Tenderness (+ frontal sinus ttp) Pupils: Present: PERRL Extroacular Muscles: Present: EOMI Conjunctiva: Present: Normal Ears: Present: Normal, NORMAL TM Mouth: Present: Moist Mucous Membranes Pharnyx: Present: Normal. No: ERYTHEMA, EXUDATE Nose (External): Present: Atraumatic Nose (Internal): Present: Clear Mucous. No: Septal Hematoma Neck: Present: Normal Range of Motion, Trachea Midline. No: Meningeal Signs, Lymphadenopathy Respiratory/Chest: Present: Clear to Auscultation, Good Air Exchange. No: Respiratory Distress, Accessory Muscle Use Cardiovascular: Present: Regular Rate and Rhythm, Normal S1, S2. No: Murmurs Neurological: Present: GCS=15 Skin: Present: Warm, Dry, Normal Color. No: Rashes Psychiatric: Present: Alert, Oriented x 3 Medical Decision Making ED Course and Treatment: 01/23/17 19:21 Patient is nontoxic well appearing in no distress. Vital signs are stable Motrin 600 mg p.o. augmentin Po I advised follow up with primary care physician within the next 2 days, advised to increase fluids take medications as prescribed and return if symptoms worsen persist or if new symptoms develop. Patient verbalizes understanding of discharge instructions and need for immediate followup. all aspects of this case were discussed the attending of record. IMPRESSION; sinusitis Motrin every 6 hours as needed for pain/fever reduction Increase fluids Augmentin 1 tablet twice daily x10 days flonase; 2 sprays each nostril once daily. Follow up primary care physician within the next 2 days Return if symptoms worsen persist or if the symptoms develop - Medication Orders Current Medication Orders: Amoxicillin/Clavulanate Potassium (Augmentin 875 Mg-125 Mg Tab) 1 tab PO STAT STA PRN Reason: Protocol Stop: 01/23/17 19:17 Ibuprofen (Motrin Tab) 600 mg PO STAT STA Stop: 01/23/17 19:17 Disposition/Present on Arrival - Present on Arrival Any Indicators Present on Arrival: No History of DVT/PE: No History of Uncontrolled Diabetes: No Urinary Catheter: No History of Decub. Ulcer: No History Surgical Site Infection Following: None - Disposition Have Diagnosis and Disposition been Completed?: Yes Diagnosis: Sinusitis Disposition: HOME/ ROUTINE Disposition Time: 19:20 Patient Plan: Discharge Condition: GOOD Discharge Instructions (ExitCare): Sinusitis (ED) Additional Instructions: Motrin every 6 hours as needed for pain/fever reduction Increase fluids Augmentin 1 tablet twice daily x10 days flonase; 2 sprays each nostril once daily. Follow up primary care physician within the next 2 days Return if symptoms worsen persist or if the symptoms develop Prescriptions: Amoxicillin/Clavulanate [Augmentin 875 MG-125 MG] 1 tab PO BID #20 tab Fluticasone Nasal [Flonase] 2 spr NS DAILY #1 spr Ibuprofen [Motrin] 600 mg PO Q6H PRN #20 tab PRN Reason: pain/fever reduction Referrals: Rony Torres MD [Primary Care Provider] - Follow up with primary Forms: [employer] (Hungarian)
== END 2017-01-23 19:40 | disposition home or self-care (01) ==
LOC: ED 16:55
DX: J32.9 Chronic sinusitis, unspecified (principal)

== ENCOUNTER 2017-02-05 12:02 | Emergency (ER) | payer OTHER ==
[2017-02-05 12:03] VITALS: BMI 22.6
[2017-02-05 12:28] VITALS: RESP 16; TEMP 98.5; O2SAT 100
--- NOTE | 2017-02-05 12:45 | ED PDOC ---
Arrival/HPI - General Chief Complaint: Cough, Cold, Congestion Time Seen by Provider: 02/05/17 12:09 Historian: Patient - History of Present Illness Narrative History of Present Illness (Text): 02/05/17 12:45 Cherry Hernandez is a 31 year old female history of states states was prescribed augmentin 01/23/17 which she took for about 3 days, but then developed vaginal yeast infection thus stopped and has been treated for yeast infection without complaint at this time. presents to the Emergency department complaining of nasal congestion pressure discomfort since three days with subsequent development of post-nasal drip which is causing throat irritation and coughing up phegm. 02/05/17 13:09 02/05/17 13:26 Time/Duration: < week Symptom Onset: Gradual Symptom Course: Unchanged Activities at Onset: Light Context: Home Past Medical History - Provider Review Nursing Documentation Reviewed: Yes - Travel History Have you recently traveled outside [place] w/in the past 3 mons?: No - Infectious Disease Hx of Infectious Diseases: None - Tetanus Immunization Tetanus Immunization: Unknown - Cardiac Hx Cardiac Disorders: No - Pulmonary Hx Respiratory Disorders: Yes Hx Asthma: Yes (EXERCISE INDUCED) - Neurological Hx Neurological Disorder: No - HEENT Hx HEENT Disorder: No - Renal Hx Renal Disorder: No - Endocrine/Metabolic Hx Endocrine Disorders: No - Hematological/Oncological Hx Blood Disorders: No - Integumentary Hx Dermatological Disorder: No - Musculoskeletal/Rheumatological Hx Musculoskeletal Disorders: No - Gastrointestinal Hx Gastrointestinal Disorders: Yes Hx Crohn's Disease: Yes (colectomy 2006) - Genitourinary/Gynecological Hx Genitourinary Disorders: No - Psychiatric Hx Psychophysiologic Disorder: No Hx Substance Use: No - Surgical History Other/Comment: Colectomy 2007. Partial colectomy - Anesthesia Hx Anesthesia: Yes Hx Anesthesia Reactions: No - Suicidal Assessment Feels Threatened In Home Enviroment: No Family/Social History - Physician Review Nursing Documentation Reviewed: Yes Family/Social History: No Known Family HX, Unknown Family HX Smoking Status: Never Smoked Hx Alcohol Use: Yes Hx Substance Use: No Allergies/Home Meds Allergies/Adverse Reactions: Allergies iohexol Allergy (Intermediate, Verified 01/23/17 17:27) SWELLING ciprofloxacin Allergy (Verified 01/23/17 17:27) RASH Review of Systems - Physician Review All systems were reviewed & negative as marked: Yes - Review of Systems Constitutional: Normal. absent: Fatigue, Fevers Eyes: Normal. absent: Vision Changes, Photophobia, Eye Pain ENT: Sore Throat, Sinus Congestion. absent: Hearing Changes, Tinnitus, TMJ Pain , Epistaxis Respiratory: Normal. absent: SOB, Cough Cardiovascular: Normal. absent: Chest Pain, Palpitations Gastrointestinal: Normal. absent: Abdominal Pain, Stool Changes, Nausea, Vomiting Musculoskeletal: Normal. absent: Back Pain, Neck Pain, Myalgias Skin: Normal. absent: Rash, Pruritis, Skin Lesions Neurological: Normal. absent: Headache, Dizziness, Focal Weakness Endocrine: Normal. absent: Diaphoresis Hemo/Lymphatic: Normal Psychiatric: Normal Physical Exam Vital Signs Reviewed: Yes Vital Signs Temp Pulse Resp BP Pulse Ox 02/05/17 12:17 98.5 F 102 H 16 112/75 100 Temperature: Afebrile Blood Pressure: Normal Pulse: Tachycardic Respiratory Rate: Normal Appearance: Positive for: Well-Appearing, Non-Toxic, Comfortable Pain Distress: None Mental Status: Positive for: Alert and Oriented X 3 - Systems Exam Head: Present: Atraumatic, Normocephalic. No: Tenderness Pupils: Present: PERRL. No: Sluggish Extroacular Muscles: Present: EOMI Conjunctiva: Present: Normal Mouth: Present: Moist Mucous Membranes, Other (mild pharyngeal hyperemia wo fluctuance/edema/exudate. +patent airway. ) Pharnyx: Present: Other (mild rawness back of throat. No fluctuance or edema.). No: ERYTHEMA, EXUDATE Nose (External): Present: Atraumatic Nose (Internal): Present: Normal Inspection Neck: Present: Normal Range of Motion Respiratory/Chest: Present: Clear to Auscultation, Good Air Exchange. No: Respiratory Distress, Accessory Muscle Use Cardiovascular: Present: Regular Rate and Rhythm, Normal S1, S2. No: Murmurs Abdomen: Present: Normal Bowel Sounds. No: Tenderness, Distention, Peritoneal Signs Back: Present: Normal Inspection Upper Extremity: Present: Normal Inspection. No: Cyanosis, Edema Lower Extremity: Present: Normal Inspection. No: Edema Neurological: Present: GCS=15, CN II-XII Intact, Speech Normal Skin: Present: Warm, Dry, Normal Color. No: Rashes Psychiatric: Present: Alert, Oriented x 3, Normal Insight, Normal Concentration. No: Anxious Medical Decision Making ED Course and Treatment: 02/05/17 12:45 Impression: 31 year old female presents to the Emergency department for sore throat, phlegm and sinus congestion. Differential Diagnosis included but are not limited to: viral sinusitis Plan: -- Reassess and disposition Prior Visits: Notes and results from previous visits were reviewed. Patient last seen in ED on 01/23/17 for sinusitis. Progress Notes: 02/05/17 13:14 Cherry Hernandez is a 31 year old female history of states was prescribed augmentin 01/23/17 which she took for about 3 days, but then developed vaginal yeast infection thus stopped and has been treated for yeast infection without complaint at this time. presents to the Emergency department complaining of nasal congestion pressure discomfort since three days with subsequent development of post-nasal drip which is causing throat irritation and coughing up phegm. Patient denies any change in voice, drooling, chest pain, shortness of breath, headache, fever, chills, cough, nausea, vomiting, diarrhea, abdominal pain, dizziness, lightheadedness or any other complaints. you were smiling with your boyfriend, breathing comfortably, alert/oriented, good strength/sensation, walking easily, mild back of throat rawness without white spots/swelling and noted nice open airway, no fever temp 98.5, mildly fast heart rate 102 related to sinus discomfort, stable breathing rate 16, excellent oxygen level room air 100, stable blood pressure 112/75, negative urine test, given tylenol with improvement in the ED, counselled that is a viral upper respiratory infection and to hold off on antibiotics at this time and discharged home with your boyfriend. 1. Recommend humidified air daily for sinus congestion. 2. Recommend tylenol as directed for sinus pressure discomfort. 3. if no improvement or worsening colored sputum in 5-7 days then can re-start doxycycline as directed for infection control with new prescription as written. 4. Recommend followup primary care 7 days to review symptoms and plan chest xray if persistent coughing with sputum. 5. if any worsening pain, fever, chills, nausea, vomiting, difficulty breathing, loss of limb function, pain with urination or any medical condition then return to the ED. 02/05/17 13:16 02/05/17 13:25 - Scribe Statement The provider has reviewed the documentation as recorded by the Scribe Elli Tangm training under Estephanie. All medical record entries made by the Anurag were at my direction and personally dictated by me. I have reviewed the chart and agree that the record accurately reflects my personal performance of the history, physical exam, medical decision making, and the department course for this patient. I have also personally directed, reviewed, and agree with the discharge instructions and disposition. Disposition/Present on Arrival - Present on Arrival Any Indicators Present on Arrival: Yes History of DVT/PE: No History of Uncontrolled Diabetes: No Urinary Catheter: No History of Decub. Ulcer: No History Surgical Site Infection Following: None - Disposition Have Diagnosis and Disposition been Completed?: Yes Diagnosis: Upper respiratory infection Disposition: HOME/ ROUTINE Disposition Time: 13:22 Patient Plan: Discharge Patient Problems: Current Active Problems Problem Status Onset Upper respiratory infection Acute Condition: IMPROVED Additional Instructions: You have history of stated was prescribed augmentin 01/23/17 which she took for about 3 days, but then developed vaginal yeast infection thus stopped and has been treated for yeast infection without complaint at this time. presents to the Emergency department complaining of nasal congestion pressure discomfort since three days with subsequent development of post-nasal drip which is causing throat irritation and coughing up phegm. Patient denies any change in voice, drooling, chest pain, shortness of breath, headache, fever, chills, cough , nausea, vomiting, diarrhea, abdominal pain, dizziness, lightheadedness or any other complaints. you were smiling with your boyfriend, breathing comfortably, alert/oriented, good strength/sensation, walking easily, mild back of throat rawness without white spots/swelling and noted nice open airway, no fever temp 98.5, mildly fast heart rate 102 related to sinus discomfort, stable breathing rate 16, excellent oxygen level room air 100, stable blood pressure 112/75, negative urine test, given tylenol with improvement in the ED, counselled that is a viral upper respiratory infection and to hold off on antibiotics at this time and discharged home with your boyfriend. 1. Recommend humidified air daily for sinus congestion. 2. Recommend tylenol as directed for sinus pressure discomfort. 3. if no improvement or worsening colored sputum in 5 -7 days then can re-start doxycycline as directed for infection control with new prescription as written. 4. Recommend followup primary care 7 days to review symptoms and plan chest xray if persistent coughing with sputum. 5. if any worsening pain, fever, chills, nausea, vomiting, difficulty breathing, loss of limb function, pain with urination or any medical condition then return to the ED. Prescriptions: Doxycycline Hyclate 100 mg PO Q12 10 Days #14 capsule Referrals: Rony Torres MD [Primary Care Provider] - Follow up with primary Forms: [employer] (Pashto)
[2017-02-05 13:42] VITALS: BP 114/87; PULSE 95
== END 2017-02-05 13:42 | disposition home or self-care (01) ==
LOC: ED 12:02
DX: J06.9 Acute upper respiratory infection, unspecified (principal)

== ENCOUNTER 2017-08-19 20:30 | Emergency (ER) | payer MEDICAID, OTHER ==
[2017-08-19 20:30] VITALS: BMI 22.6
[2017-08-19 20:47] VITALS: TEMP 99.6
--- NOTE | 2017-08-19 20:58 | ED PDOC ---
Arrival/HPI - General Chief Complaint: Cough, Cold, Congestion Time Seen by Provider: 08/19/17 20:31 Historian: Patient - History of Present Illness Narrative History of Present Illness (Text): 08/19/17 20:41 32 y/o female, pmh including colitis and PUD, allergic to fluoroquinolones, c/ o lt. ear pain/cough/sore throat x 3 days with no recent traveling. Pt. stated that she has left pain, associated with dry coughing but no chest pain or shortness of breath, aching throat pain with coughing, no palpitation, no rash, no weight loss, no palpitation, no numbness or tingling, no other medical or psychological complaints. Past Medical History - Provider Review Nursing Documentation Reviewed: Yes - Infectious Disease Hx of Infectious Diseases: None - Tetanus Immunization Tetanus Immunization: Unknown - Cardiac Hx Cardiac Disorders: No - Pulmonary Hx Respiratory Disorders: Yes Hx Asthma: Yes (EXERCISE INDUCED) - Neurological Hx Neurological Disorder: No - HEENT Hx HEENT Disorder: No - Renal Hx Renal Disorder: No - Endocrine/Metabolic Hx Endocrine Disorders: No - Hematological/Oncological Hx Blood Disorders: No - Integumentary Hx Dermatological Disorder: No - Musculoskeletal/Rheumatological Hx Musculoskeletal Disorders: No - Gastrointestinal Hx Gastrointestinal Disorders: Yes Hx Crohn's Disease: Yes (colectomy 2006) - Genitourinary/Gynecological Hx Genitourinary Disorders: No - Psychiatric Hx Psychophysiologic Disorder: No Hx Substance Use: No - Surgical History Other/Comment: Colectomy 2007. Partial colectomy - Anesthesia Hx Anesthesia: Yes Hx Anesthesia Reactions: No - Suicidal Assessment Feels Threatened In Home Enviroment: No Family/Social History - Physician Review Nursing Documentation Reviewed: Yes Family/Social History: Unknown Family HX Smoking Status: Never Smoked Hx Alcohol Use: Yes Hx Substance Use: No Allergies/Home Meds Allergies/Adverse Reactions: Allergies iohexol Allergy (Intermediate, Verified 08/19/17 20:32) SWELLING ciprofloxacin Allergy (Verified 08/19/17 20:32) RASH Home Medications: Home Meds Medication Instructions Recorded Confirmed Mesalamine [Terrencezicotony DIXON] 400 mg PO DAILY 08/19/17 08/19/17 Review of Systems - Review of Systems Constitutional: absent: Fatigue, Fevers Eyes: absent: Vision Changes ENT: Sore Throat, Other (+ear pain). absent: Hearing Changes, Rhinorrhea Respiratory: Cough. absent: SOB, Sputum, Wheezing Cardiovascular: absent: Chest Pain Gastrointestinal: absent: Abdominal Pain, Nausea, Vomiting Skin: absent: Rash, Pruritis Neurological: absent: Headache, Dizziness Psychiatric: absent: Anxiety, Depression Physical Exam Vital Signs Reviewed: Yes Vital Signs Temp Pulse Resp BP Pulse Ox 08/19/17 20:32 99.6 F 91 H 16 114/80 99 Temperature: Afebrile Blood Pressure: Normal Pulse: Regular Respiratory Rate: Normal Appearance: Positive for: Well-Appearing, Non-Toxic, Comfortable Pain Distress: Mild Mental Status: Positive for: Alert and Oriented X 3 - Systems Exam Head: Present: Atraumatic, Normocephalic Pupils: Present: PERRL Extroacular Muscles: Present: EOMI Conjunctiva: Present: Normal Ears: Present: NORMAL TM, Normal Canal. No: Erythema Mouth: Present: Moist Mucous Membranes Pharnyx: No: ERYTHEMA, EXUDATE, TONSILS ENLARGED, Peritonsilar Swelling, Uvular Deviation Nose (External): Present: Atraumatic. No: Abrasion, Contusion Nose (Internal): Present: Normal Inspection, No Active Bleeding. No: Rhinorrhea , Septal Hematoma, Epistaxis Neck: Present: Normal Range of Motion, Trachea Midline. No: Meningeal Signs, MIDLINE TENDERNESS, Paraspinal Tenderness, Lymphadenopathy Respiratory/Chest: Present: Clear to Auscultation, Good Air Exchange. No: Respiratory Distress, Accessory Muscle Use, Wheezes, Retracting, Rhonchi, Tachypneic, Tender to Palpation Cardiovascular: Present: Regular Rate and Rhythm, Normal S1, S2. No: Murmurs Abdomen: No: Tenderness, Distention, Peritoneal Signs, Rebound, Guarding Back: Present: Normal Inspection Upper Extremity: Present: Normal Inspection. No: Cyanosis, Edema Lower Extremity: Present: Normal Inspection. No: Edema Neurological: Present: GCS=15, CN II-XII Intact, Speech Normal, Motor Func Grossly Intact, Gait Normal, Memory Normal Skin: Present: Warm, Dry, Normal Color. No: Rashes Psychiatric: Present: Alert, Oriented x 3, Normal Insight, Normal Concentration Medical Decision Making ED Course and Treatment: 08/19/17 21:00 -Pt. refused chest xray -Discharge home with zithromax, tylenol, stay hydrated, bed rest, follow up with your own pmd and ENT within 2 days, return to the ER for any new or worsening signs or symptoms. - PA / COLLATERAL SPECIALIST / Resident Statement / has reviewed & agrees with the documentation as recorded. Disposition/Present on Arrival - Present on Arrival Any Indicators Present on Arrival: No History of DVT/PE: No History of Uncontrolled Diabetes: No Urinary Catheter: No History of Decub. Ulcer: No History Surgical Site Infection Following: None - Disposition Have Diagnosis and Disposition been Completed?: Yes Diagnosis: URI (upper respiratory infection) Disposition: HOME/ ROUTINE Disposition Time: 21:09 Patient Plan: Discharge Condition: GOOD Additional Instructions: -Discharge home with zithromax, tylenol, stay hydrated, bed rest, follow up with your own pmd and ENT within 2 days, return to the ER for any new or worsening signs or symptoms. Prescriptions: Acetaminophen [Pain Relief] 500 mg PO QID PRN #30 tablet PRN Reason: Other Azithromycin [Zithromax] 250 mg PO DAILY #6 tab Referrals: Carlos Rosen DO [[facility]] - Follow up with primary Forms: WORK NOTE
[2017-08-19 21:58] VITALS: BP 119/76; PULSE 89; RESP 18; O2SAT 100
== END 2017-08-19 21:30 | disposition home or self-care (01) ==
LOC: ED 20:30
DX: J06.9 Acute upper respiratory infection, unspecified (principal)

== ENCOUNTER 2017-09-07 13:58 | Emergency (ER) | payer MEDICAID ==
[2017-09-07 14:14] VITALS: BMI 23.6
[2017-09-07] MEDS ORDERED: Sodium Chloride 0.9% 1,000 ML IV STA (15:16)
--- NOTE | 2017-09-07 15:27 | ED PDOC ---
Arrival/HPI - General Chief Complaint: Female Genitourinary Time Seen by Provider: 09/07/17 14:55 Historian: Patient - History of Present Illness Narrative History of Present Illness (Text): 09/07/17 15:23 32yo female with no pmhx who present with 6weeks history of pelvic pain with intermittent nausea. Notes that pain started after stopping her OCP in June. She states that her LMP was 06/16/17. states she had negative test few weeks ago. She came to ED today for the persistent pain. States she is sexually active. Denies dysuria, urinary frequency, vaginal discharge/bleeding, vomiting , diarrhea, constipation, back pain, fever, chills, any other complaint. Past Medical History - Provider Review Nursing Documentation Reviewed: Yes - Infectious Disease Hx of Infectious Diseases: None - Tetanus Immunization Tetanus Immunization: Unknown - Cardiac Hx Cardiac Disorders: No - Pulmonary Hx Respiratory Disorders: Yes Hx Asthma: Yes (EXERCISE INDUCED) - Neurological Hx Neurological Disorder: No - HEENT Hx HEENT Disorder: No - Renal Hx Renal Disorder: No - Endocrine/Metabolic Hx Endocrine Disorders: No - Hematological/Oncological Hx Blood Disorders: No - Integumentary Hx Dermatological Disorder: No - Musculoskeletal/Rheumatological Hx Musculoskeletal Disorders: No - Gastrointestinal Hx Gastrointestinal Disorders: Yes Hx Crohn's Disease: Yes (colectomy 2006) - Genitourinary/Gynecological Hx Genitourinary Disorders: No - Psychiatric Hx Psychophysiologic Disorder: No Hx Substance Use: No - Surgical History Other/Comment: Colectomy 2007. Partial colectomy - Anesthesia Hx Anesthesia: Yes Hx Anesthesia Reactions: No - Suicidal Assessment Feels Threatened In Home Enviroment: No Family/Social History - Physician Review Nursing Documentation Reviewed: Yes Family/Social History: Unknown Family HX Smoking Status: Never Smoked Hx Alcohol Use: Yes Hx Substance Use: No Allergies/Home Meds Allergies/Adverse Reactions: Allergies iohexol Allergy (Intermediate, Verified 09/07/17 14:13) SWELLING ciprofloxacin Allergy (Verified 09/07/17 14:13) RASH Home Medications: Home Meds Medication Instructions Recorded Confirmed Mesalamine [Angela DIXON] 400 mg PO DAILY 08/19/17 09/07/17 Review of Systems - Physician Review All systems were reviewed & negative as marked: Yes - Review of Systems Constitutional: Normal Eyes: Normal ENT: Normal Respiratory: Normal Cardiovascular: Normal Gastrointestinal: Abdominal Pain, Nausea. absent: Constipation, Diarrhea, Vomiting, Hematochezia, Hematemesis Genitourinary Female: Normal Musculoskeletal: Normal Skin: Normal Neurological: Normal Endocrine: Normal Hemo/Lymphatic: Normal Psychiatric: Normal Physical Exam Vital Signs Reviewed: Yes Vital Signs Temp Pulse Resp BP Pulse Ox 09/07/17 16:58 98.0 F 89 18 110/66 100 09/07/17 16:56 98.0 F 89 18 110/66 100 09/07/17 14:13 99.4 F 92 H 17 98/66 L 99 Temperature: Afebrile Blood Pressure: Normal Pulse: Regular Respiratory Rate: Normal Appearance: Positive for: Well-Appearing, Non-Toxic, Comfortable Pain Distress: None Mental Status: Positive for: Alert and Oriented X 3 - Systems Exam Head: Present: Atraumatic, Normocephalic Pupils: Present: PERRL Extroacular Muscles: Present: EOMI Conjunctiva: Present: Normal Mouth: Present: Moist Mucous Membranes Neck: Present: Normal Range of Motion Respiratory/Chest: Present: Clear to Auscultation, Good Air Exchange. No: Respiratory Distress, Accessory Muscle Use Cardiovascular: Present: Regular Rate and Rhythm, Normal S1, S2. No: Murmurs Abdomen: Present: Other (soft). No: Tenderness, Distention, Peritoneal Signs, Rebound, Guarding, McBurney's Point Tender, Rovsing's Sign Present Back: Present: Normal Inspection Upper Extremity: Present: Normal Inspection. No: Cyanosis, Edema Lower Extremity: Present: Normal Inspection. No: Edema Neurological: Present: GCS=15, CN II-XII Intact, Speech Normal Skin: Present: Warm, Dry, Normal Color. No: Rashes Psychiatric: Present: Alert, Oriented x 3, Normal Insight, Normal Concentration Medical Decision Making ED Course and Treatment: 09/08/17 00:39 PT in ED for stated history. She reported pelvic abdominal pain and Upreg was positive in ED. Lab and transvaginal US was ordered to r/o ectopic. she denies vaginal bleeding in ED. she was hydrated in ED. Lab was unremarkable Transvaginal US CERVIX: Long and closed. No cervical abnormality seen. RIGHT OVARY: Measures 3.7 x 2.0 x 3.0 cm. No mass. Normal flow. LEFT OVARY: Measures 3.3 x 2.0 x 3.1 cm. No mass. Normal flow. There is a 1.1 x 1.4 x 0.9 cm corpus luteum cyst. FREE FLUID: None. OTHER FINDINGS: None. IMPRESSION: Single live intrauterine gestation with mean gestational age of 8 weeks and 4 days. The estimated date of delivery by ultrasound is She is primigravid. Result was DW the pt and vitamin rx was given. She was advised to f/u with OB. - Lab Interpretations Lab Results: 09/07/17 15:25 09/07/17 15:25 Lab Results 09/07/17 15:25: Beta HCG, Quant [id number] H 09/07/17 15:25: Sodium 138, Potassium 4.1, Chloride 102, Carbon Dioxide 22, Anion Gap 18, BUN 7, Creatinine 0.6 L, Est GFR ( Amer) > 60, Est GFR (Non -Af Amer) > 60, Random Glucose 90, Calcium 10.0, Total Bilirubin 0.4, AST 31, ALT 33, Alkaline Phosphatase 74, Total Protein 8.6 H, Albumin 4.6, Globulin 4.1 , Albumin/Globulin Ratio 1.1 09/07/17 15:25: Urine Color Yellow, Urine Appearance Clear, Urine pH 6.0, Ur Specific [place] 1.025, Urine Protein Negative, Urine Glucose (UA) Negative, Urine Ketones Negative, Urine Blood Negative, Urine Nitrate Negative, Urine Bilirubin Negative, Urine Urobilinogen 0.2, Ur Leukocyte Esterase Negative, Urine HCG, Qual Positive 09/07/17 15:25: PT 11.2, INR 0.98, APTT 31.0 09/07/17 15:25: WBC 9.6, RBC 4.09, Hgb 12.3, Hct 34.7 L, MCV 84.8, MCH 30.1, MCHC 35.4, RDW 12.5, Plt Count 397, MPV 8.8, Gran % 60.7, Lymph % (Auto) 31.0, [place] % (Auto) 6.6 H, Eos % (Auto) 1.4 L, Baso % (Auto) 0.3, Gran # 5.81, Lymph # (Auto) 3.0, [place] # (Auto) 0.6, Eos # (Auto) 0.1, Baso # (Auto) 0.03 - RAD Interpretation Radiology Orders: 09/07/17 15:17 OB TRANSVAGINAL [US] Stat - Medication Orders Current Medication Orders: Discontinued Medications Sodium Chloride (Sodium Chloride 0.9%) 1,000 mls @ 999 mls/hr IV .Q1H1M STA Stop: 09/07/17 16:16 Last Admin: 09/07/17 15:38 Dose: 999 mls/hr eMAR Start Stop Document 09/07/17 15:38 OCS (Rec: 09/07/17 15:39 OCS [id number]) Intravenous Solution Start Date 09/07/17 Start Time 15:39 End Date 09/07/17 End time 16:40 Total Infusion Time 61 Disposition/Present on Arrival - Present on Arrival Any Indicators Present on Arrival: No History of DVT/PE: No History of Uncontrolled Diabetes: No Urinary Catheter: No History of Decub. Ulcer: No History Surgical Site Infection Following: None - Disposition Have Diagnosis and Disposition been Completed?: Yes Diagnosis: Abdominal pain, Disposition: HOME/ ROUTINE Disposition Time: 16:30 Patient Plan: Discharge Condition: STABLE Discharge Instructions (ExitCare): Acute Abdomen (Belly Pain) Additional Instructions: Follow up with a OB Return to ED for any new or worsening symptoms Prescriptions: Multivit/Folic Acid/I [ Plus] 1 tab PO DAILY #30 tab Referrals: Rony Torres MD [Primary Care Provider] - Follow up with primary Milton Alcaraz MD [Staff Provider] - Follow up with primary Forms: [employer] (Greenlandic)
[2017-09-07 15:44] LABS: BASO # 0.03 K/mm3 (0.0-2.0); BASO % 0.3 % (0.0-3.0); EOS # 0.1 (0.0-0.7); EOS % 1.4 % (1.5-5.0); GRAN # 5.81 (1.4-6.5); GRAN % 60.7 % (50.0-68.0); HEMOGLOBIN 12.3 g/dL (12.0-16.0); MEAN CELL VOLUME 84.8 fl (80.0-105.0); MEAN CORPUSCULAR HEMOGLOBIN 30.1 pg (25.0-35.0); MEAN CORPUSCULAR HGB CONC 35.4 g/dl (31.0-37.0); MEAN PLATELET VOLUME 8.8 fl (7.0-11.0); MONO # 0.6 (0.1-0.6); MONO % 6.6 % (1.0-6.0); RBC 4.09 10^6/uL (3.5-6.1); RED CELL DISTRIBUTION WIDTH 12.5 % (11.5-14.5); WHITE BLOOD COUNT 9.6 10^3/ul (4.5-11.0)
[2017-09-07 15:48] LABS: HCG,QUALITATIVE URINE POSITIVE (NEGATIVE); URINE APPEARANCE CLEAR (CLEAR); URINE BILIRUBIN NEGATIVE (NEGATIVE); URINE BLOOD NEGATIVE (NEGATIVE); URINE COLOR YELLOW (YELLOW); URINE GLUCOSE (UA) NEGATIVE (NEGATIVE); URINE LEUKOCYTE ESTERASE NEGATIVE Leu/uL (NEGATIVE); URINE PROTEIN NEGATIVE mg/dL (<30 mg/dL); URINE UROBILINOGEN 0.2 E.U./dL (<1 E.U./dL)
[2017-09-07 15:55] LABS: ALB/GLOB RATIO 1.1 (1.1-1.8); ALBUMIN 4.6 g/dL (3.0-4.8); ALT/SGPT 33 U/L (7-56); AST/SGOT 31 U/L (14-36); BLOOD UREA NITROGEN 7 mg/dL (7-21); GFR AFRICAN-AMERICAN > 60; GFR NON-AFRICAN AMERICAN > 60
[2017-09-07 15:56] LABS: INR 0.98 (0.93-1.08); PROTHROMBIN TIME 11.2 SECONDS (9.4-12.5)
--- NOTE | 2017-09-07 16:22 | US ---
Date of service: 09/07/2017 PROCEDURE: OB Pelvic Ultrasound HISTORY: pelvic pain/ COMPARISON: None available. TECHNIQUE: Transvaginal pelvic ultrasound was performed. FINDINGS: UTERUS: Single Live intrauterine gestation. Yolk sac is visualized. CRL measures 2.09 cm equivalent to 8 weeks and 5 days of gestational age. Gestational sac diameter measures 3.36 cm equivalent to 8 weeks and 3 days of gestational age. age (Ultrasound estimated): 8 weeks and 4 days Date of delivery (Ultrasound estimated) : 04/15/2018 Heart rate: 179 bpm. Breann-gestational hemorrhage: None. Uterus measures 10.8 x 5.8 x 6.4 cm. Normal in size and appearance. No fibroid or other mass lesion seen. CERVIX: Long and closed. No cervical abnormality seen. RIGHT OVARY: Measures 3.7 x 2.0 x 3.0 cm. No mass. Normal flow. LEFT OVARY: Measures 3.3 x 2.0 x 3.1 cm. No mass. Normal flow. There is a 1.1 x 1.4 x 0.9 cm corpus luteum cyst. FREE FLUID: None. OTHER FINDINGS: None. IMPRESSION: Single live intrauterine gestation with mean gestational age of 8 weeks and 4 days. The estimated date of delivery by ultrasound is 04/15/2018
[2017-09-07 17:03] VITALS: BP 110/66; PULSE 89; RESP 18; TEMP 98; O2SAT 100
== END 2017-09-07 16:56 | disposition home or self-care (01) ==
LOC: ED 13:58
DX: O26.891 Other specified pregnancy related conditions, first trimester (principal); R10.9 Unspecified abdominal pain; Z3A.08 8 weeks gestation of pregnancy
CPT/HCPCS: 76817; 80053; 81003; 84702; 84703; 85025; 85610; 85730; 96360; 99283; J7030